=== PATIENT | male | born 1995 | race Caucasian/White ===

== ENCOUNTER 2018-09-11 10:36 | Emergency (ER) | payer BC, MEDICAID ==
[~2018-09-11] VITALS: Ht 182.9 cm; Wt 93.0 kg
--- NOTE | 2018-09-11 10:52 | NUR ---
ED Nurse Note: patient walked into ED from home c/o numbness on the hand and palpitations earlier this morning.
[2018-09-11 11:36] VITALS: BP 132/84
--- NOTE | 2018-09-11 12:05 | NUR ---
ED Nurse Note: patient taken down for MRI
[2018-09-11 12:19] LABS: BASOPHILS % (AUTO) 0.8 % (0.0-2.0); EOSINOPHILS % (AUTO) 0.2 % (0.0-3.0); HEMATOCRIT 48.3 % (42.0-52.0); HEMOGLOBIN 16.2 G/DL (14.2-18.0); LYMPHOCYTES % (AUTO) 25.3 % (20.0-45.0); MEAN CORPUSCULAR VOLUME 86 FL (80-99); MONOCYTES % (AUTO) 6.7 % (1.0-10.0); PLATELET COUNT 208 K/UL (150-450); RED BLOOD COUNT 5.64 M/UL (4.70-6.10); RED CELL DISTRIBUTION WIDTH 11.3 % (11.6-14.8); WHITE BLOOD COUNT 5.8 K/UL (4.8-10.8)
[2018-09-11 12:20] LABS: ANION GAP 12 mmol/L (5-15); BLOOD UREA NITROGEN 9 mg/dL (7-18); CALCIUM 9.9 MG/DL (8.5-10.1); CARBON DIOXIDE 26 MMOL/L (21-32); CHLORIDE 102 MMOL/L (98-107); CREATININE 0.8 MG/DL (0.55-1.30); POTASSIUM 3.7 MMOL/L (3.5-5.1); SODIUM 140 MMOL/L (136-145)
[2018-09-11 12:36] LABS: ALANINE AMINOTRANSFERASE 29 U/L (12-78); ALBUMIN 4.5 G/DL (3.4-5.0); ALBUMIN/GLOBULIN RATIO 1.2 (1.0-2.7); ALKALINE PHOSPHATASE 76 U/L (46-116); ASPARTATE AMINO TRANSFERASE 17 U/L (15-37); BILIRUBIN,DIRECT 0.2 MG/DL (0.0-0.3); BILIRUBIN,TOTAL 1.1 MG/DL (0.2-1.0); CKMB 0.7 NG/ML (0.0-3.6); CREATINE KINASE 91 U/L (26-308)
--- NOTE | 2018-09-11 12:48 | NUR ---
ED Nurse Note: patient came back form MRI stable condition a/o x4
--- NOTE | 2018-09-11 12:52 | Diagnostic Imaging Report ---
Indication: Reason For Exam: CVA Technique: sagittal T1 fast spin echo, axial T1 FLAIR, axial T2 FLAIR, axial T2 FS PROPELLER, axial T2* GRE, axial diffusion weighted images. ADC and exponential ADC maps generated Comparison: none Findings: No abnormal areas of restricted diffusion to suggest acute infarction. No acute hemorrhage or edema. No mass effect nor midline shift. Normal size ventricles and extra axial CSF spaces. Visualized orbits and sinuses are unremarkable. The vascular flow voids are preserved. Impression: Negative. No evidence of acute infarct, intracranial hemorrhage, edema, or mass effect
[2018-09-11 13:05] VITALS: BP 128/82
--- NOTE | 2018-09-11 13:08 | Diagnostic Imaging Report ---
Indication: Chest Technique: One view of the chest Comparison: none Findings: Lungs and pleural spaces are clear. Heart size is normal Impression: No acute process
[2018-09-11] MEDS ORDERED: VALIUM5 MG ORAL (13:12)
[2018-09-11 13:22] VITALS: BP 128/82
--- NOTE | 2018-09-11 13:26 | NUR ---
ED Nurse Note: patient is being discharged, cleared by ERMD, a/o x4, ambulatory, discharge instructions, paper given to the patient, patient verbalized understanding. IV site removed without complication. ID band removed. patient ambulated out of ED with all belongings.
--- NOTE | 2018-09-11 16:46 | Emergency Room Report ---
History of Present Illness General Chief Complaint: Palpitations Source: Patient Present Illness HPI Patient presents emergency department today complaining of palpitations. Patient states that he hasn't been feeling well. He feels anxious. States that he developed dose of palpitations intermittently throughout the day. In addition he complains of numbness over her entire left side of his face that arm and left lower extremity. Symptoms however have improved now he only has numbness over his left hand. States that this happened in the past for spontaneous resolved. Because it is not going away this time was more concerned came here further evaluation. Patient states that he uses marijuana daily but he has stopped the last 2 weeks.No other modifying factors. No other associated signs and symptoms. No other complaints were noted. Allergies: Coded Allergies: No Known Allergies (Unverified , 09/11/18) Patient History Past Medical History: none Past Surgical History: other - Left eye surgery as a child Pertinent Family History: none Social History: Denies: smoking, alcohol use, drug use Reviewed Nursing Documentation: PMH: Agreed; PSxH: Agreed Nursing Documentation-PMH Past Medical History: No Stated History Review of Systems All Other Systems: negative except mentioned in HPI Physical Exam Vital Signs Date Time Temp Pulse Resp B/P (MAP) Pulse Ox O2 Delivery O2 Flow Rate FiO2 09/11/18 10:46 98.2 87 18 149/91 98 Room Air Sp02 EP Interpretation: reviewed, normal General Appearance: normal inspection, well appearing, no apparent distress, alert Head: atraumatic Eyes: bilateral eye normal inspection ENT: normal ENT inspection, hearing grossly normal, normal voice Neck: normal inspection, full range of motion, supple, no bony tend Respiratory: normal inspection, lungs clear, normal breath sounds, no respiratory distress, no retraction, no wheezing Cardiovascular #1: regular rate, rhythm, no edema Gastrointestinal: normal inspection, normal bowel sounds, non tender, soft, no guarding, no hernia Genitourinary: no CVA tenderness Musculoskeletal: normal inspection, back normal, normal range of motion Neurologic: normal inspection, alert, responsive, speech normal Psychiatric: normal inspection, judgement/insight normal, mood/affect normal Skin: normal inspection, normal color, no rash Medical Decision Making Diagnostic Impression: Primary Impression: Numbness and tingling Additional Impressions: Palpitations Anxiety attack ER Course Patient presents emergency department today complaint palpitations and numbness. Differential considerations include hypothyroidism, hyperthyroidism anxiety, drug reaction, CVA just name a few. Given the severity of the patient' s presentation I felt this is a highly complex patient. This patient required extensive workup. Patient's laboratory workup was negative. Chest x-ray was normal. MRI of the brain was negative. Given patient had negative workup I feel the patient be discharged home. I felt the symptoms are consistent with anxiety. Patient was given procedure for Valium.Patient is advised to follow up with primary doctor in 2-3 days and return the emergency room for any worsening symptoms and as needed. Labs Test 09/11/18 11:45 White Blood Count 5.8 K/UL (4.8-10.8) Red Blood Count 5.64 M/UL (4.70-6.10) Hemoglobin 16.2 G/DL (14.2-18.0) Hematocrit 48.3 % (42.0-52.0) Mean Corpuscular Volume 86 FL (80-99) Mean Corpuscular Hemoglobin 28.8 PG (27.0-31.0) Mean Corpuscular Hemoglobin Concent 33.6 G/DL (32.0-36.0) Red Cell Distribution Width 11.3 % (11.6-14.8) Platelet Count 208 K/UL (150-450) Mean Platelet Volume 7.4 FL (6.5-10.1) Neutrophils (%) (Auto) 67.0 % (45.0-75.0) Lymphocytes (%) (Auto) 25.3 % (20.0-45.0) Monocytes (%) (Auto) 6.7 % (1.0-10.0) Eosinophils (%) (Auto) 0.2 % (0.0-3.0) Basophils (%) (Auto) 0.8 % (0.0-2.0) D-Dimer < 0.19 mg/L FEU Sodium Level 140 MMOL/L (136-145) Potassium Level 3.7 MMOL/L (3.5-5.1) Chloride Level 102 MMOL/L (98-107) Carbon Dioxide Level 26 MMOL/L (21-32) Anion Gap 12 mmol/L (5-15) Blood Urea Nitrogen 9 mg/dL (7-18) Creatinine 0.8 MG/DL (0.55-1.30) Estimat Glomerular Filtration Rate > 60 mL/min (>60) Glucose Level 93 MG/DL (74-106) Calcium Level 9.9 MG/DL (8.5-10.1) Total Bilirubin 1.1 MG/DL (0.2-1.0) Direct Bilirubin 0.2 MG/DL (0.0-0.3) Aspartate Amino Transf (AST/SGOT) 17 U/L (15-37) Alanine Aminotransferase (ALT/SGPT) 29 U/L (12-78) Alkaline Phosphatase 76 U/L (46-116) Total Creatine Kinase 91 U/L (26-308) Creatine Kinase MB 0.7 NG/ML (0.0-3.6) Creatine Kinase MB Relative Index 0.7 Troponin I 0.000 ng/mL (0.000-0.056) Total Protein 8.4 G/DL (6.4-8.2) Albumin 4.5 G/DL (3.4-5.0) Globulin 3.9 g/dL Albumin/Globulin Ratio 1.2 (1.0-2.7) Lipase 92 U/L (73-393) Thyroid Stimulating Hormone (TSH) 0.721 uiU/mL (0.358-3.740) EKG Diagnostic Results Rate: normal Rhythm: NSR ST Segments: no acute changes Rhythm Strip Diag. Results EP Interpretation: yes Rate: 83 Rhythm: NSR, no PVC's, no ectopy Chest X-Ray Diagnostic Results Chest X-Ray Diagnostic Results : Chest X-Ray Ordered: Yes # of Views/Limited/Complete: 1 View Indication: Shortness of Breath EP Interpretation: No Impression: No acute disease CT/MRI/US Diagnostic Results CT/MRI/US Diagnostic Results : Imaging Test Ordered: MRI brain: Negative Last Vital Signs Date Time Temp Pulse Resp B/P (MAP) Pulse Ox O2 Delivery O2 Flow Rate FiO2 09/11/18 13:22 98.2 78 17 128/82 97 Room Air Status: improved Disposition: HOME, SELF-CARE Condition: Stable Scripts Diazepam* (VALIUM*) 5 Mg Tablet 5 MG ORAL TID PRN for ANXIETY, #5 TAB 0 Refills Prov: Turner Kwong MD 09/11/18 Referrals: NON PHYSICIAN (PCP) Patient Instructions: Palpitations, Oori-zy-Eavt Turner Kwong MD Sep 11, 2018 16:46
--- NOTE | 2018-09-12 17:02 | Cardiology Report ---
APPROVED REPORT EKG Measurement Heart [id number] Normal sinus rhythm with sinus arrhythmia Normal ECG
== END 2018-09-11 13:22 | disposition home or self-care (01) ==
LOC: EMR 13:20
DX: R00.2 Palpitations (principal); R20.2 Paresthesia of skin; R20.0 Anesthesia of skin; F41.9 Anxiety disorder, unspecified
CPT/HCPCS: 36415; 70551; 71045; 80053; 82248; 82550; 82553; 83690; 84443; 84484; 85025; 85379; 93005; 99284